=== PATIENT | male | born 1950 | race Hispanic/Latino ===

== ENCOUNTER 2017-08-21 09:36 | Outpatient (CLI) | payer MEDICARE ==
--- NOTE | 2017-08-21 12:45 | Cat Scan Report ---
CT ABDOMEN AND PELVIS WITHOUT CONTRAST INDICATION: Right lower quadrant pain. COMPARISON: 12/21/2015 FINDINGS: Abdomen and pelvis CT performed following oral contrast only. LUNG BASES: Mild nonspecific distal esophageal wall prominence/thickening, not excluded for gastroesophageal reflux and/or hiatal hernia, amongst others. ABDOMEN: Please note that sensitivity to detect small visceral lesions is limited due to the absence of intravenous contrast. Numerous tiny nonobstructing bilateral renal calculi, at least 8-10 in number with the largest measuring 4-5 mm on the right, axial image 55, series 2. Bilateral renal cortical hypodensities as well, some subcentimeter/indeterminate while largest right upper renal pole simple cyst medially is 3.6 mm, axial image 50. Grossly unremarkable unenhanced liver, spleen, gallbladder, pancreas, adrenals, aorta and IVC. Opacified small bowel nonobstructive. Normal retrocecal appendix with its tip near the right hepatic lobe tip. Mild to moderate colonic stool admixed with contrast/possible constipation. No ascites or definite size significant adenopathy. Small fat containing umbilical hernia with a transverse neck of 1.6 cm. PELVIS: Interval brachytherapy seeds placement with some streak artifact. Diffuse exaggerated urinary bladder wall thickness is mildly more pronounced, though again suboptimally distended. Subtle perivesicular and periprostatic fat stranding/haziness also now noted. Unremarkable rectosigmoid. Right ureteral appearance also now grossly unremarkable with a tiny, 1 mm faint calcification along its wall again possible as on axial image 124. No definite size significant adenopathy. Approximately 6 mm anterolisthesis of L4 over L5 and 3 mm retrolisthesis of L5 over S1 with severe L4-L5 and L5-S1 disc degeneration with vacuum phenomenon again seen. Mild multilevel spinal degenerative spurring. Lower lumbar facet arthropathy greatest at L4-L5 on the left. Bilateral SI joint degenerative bridging. Mild bilateral hip degenerative changes. Possible ischemia. CONCLUSION: 1. Interval brachytherapy seeds placement with subtle pelvic inflammatory fat stranding and mild diffuse urinary bladder exaggerated wall thickness now noted, as detailed above. Please correlate. 2. Various other incidental findings as distal esophageal thickening, bilateral renal cysts and nonobstructing nephrolithiasis, possible constipation, normal retrocecal appendix, fat-containing umbilical hernia and bony degenerative changes, amongst others, as above. Thank you for the opportunity to participate in this patient's care.
== END 2017-08-21 09:37 | disposition home or self-care (01) ==
LOC: CT 09:36
PROVIDERS: ATTEND Surgery
DX: N20.0 Calculus of kidney (principal); N28.1 Cyst of kidney, acquired; K42.9 Umbilical hernia without obstruction or gangrene; M16.0 Bilateral primary osteoarthritis of hip
CPT/HCPCS: 74176